=== PATIENT | male | born 1935 | race Caucasian/White ===

== ENCOUNTER 2024-04-08 01:58 | Emergency (ER) | payer MEDICARE ==
[~2024-04-08] VITALS: Ht 185.4 cm; Wt 90.0 kg
[2024-04-08] MEDS ORDERED: iohexol 350MG/ML 100ml bottle IV ONE (02:10)
[2024-04-08] MEDS ORDERED: tranexamic acid inj. 1,000 MG in normal saline 100ml IV soln 90 ML IV ONE (02:20)
[2024-04-08 02:22] LABS: BASOPHILS # (AUTO) 0.1 X10'3 (0-0.2); BASOPHILS % (AUTO) 0.5 % (0-1); EOSINOPHILS % (AUTO) 0.1 % (0-6); HEMATOCRIT 39.6 % (42.0-52.0); HEMOGLOBIN 13.5 g/dl (14.0-17.9); LYMPHOCYTES # (AUTO) 0.7 X10'3 (1.1-4.8); LYMPHOCYTES % (AUTO) 4.5 % (21-51); MEAN CORPUSCULAR HEMOGLOBIN 31.7 PG (27.0-31.0); MEAN CORPUSCULAR HGB CONC 34.1 g/dL (33.0-36.5); MEAN PLATELET VOLUME 8.6 FL (7.4-10.4); MONOCYTES # (AUTO) 1.1 X10'3 (0-0.9); MONOCYTES % (AUTO) 6.7 % (2-12); NEUTROPHILS # (AUTO) 14.2 X10'3 (1.8-7.7); NEUTROPHILS % (AUTO) 88.2 % (42-75); PLATELET COUNT 164 X10'3 (140-440); RED BLOOD COUNT 4.26 X10'6 (4.70-6.10); WHITE BLOOD COUNT 16.1 X10'3 (4.5-11.0)
[2024-04-08] MEDS: tranexamic acid 1gm/0.7% sal. 100 ML IV ONE (02:26)
[2024-04-08] MEDS: niCARDipine-NS 40mg/200ml IVPB 200 ML IV SCH (02:27)
[2024-04-08] MEDS ORDERED: levetiracetam inj 1,000 MG in normal saline 100ml IV soln 100 ML IV SCH ×2 (02:35→08:00)
[2024-04-08 02:36] LABS: APTT 35 SECONDS (22-32); INR 1.4 INR; PROTHROMBIN TIME 14.5 SECONDS (9.0-12.0)
[2024-04-08] MEDS: etomidate 2mg/ml inj. IV ONE (02:48)
[2024-04-08] MEDS: succinylcholine 20mg/ml inj IV ONE (02:48)
[2024-04-08] MEDS: MIDAZolam 5mg/ml 2ml vial IV ONE ×2 (02:49→03:19)
[2024-04-08 02:51] LABS: ALBUMIN 3.3 G/DL (3.4-5.0); ANION GAP 8 (8-16); BLOOD UREA NITROGEN 14 MG/DL (7-18); BUN/CREATININE RATIO 16.5 (10.0-20.0); CALCIUM 8.8 MG/DL (8.5-10.1); CHLORIDE 97 MMOL/L (99-107); CREATININE 0.85 MG/DL (0.60-1.10); GLUCOSE 182 MG/DL (70-104); MAGNESIUM 2.2 MG/DL (1.5-2.4); PRO BRAIN NATRIURETIC PEPTIDE 2978 PG/ML (0-450); SODIUM 131 MMOL/L (135-145); TOTAL CARBON DIOXIDE 26.2 MMOL/L (24-32); eCRCL 68 ML/MIN; eGFR 85 ML/MIN
[2024-04-08] MEDS: levetiracetam-NACL1000mg/100ml 100 ML IV ONE (02:53)
[2024-04-08] MEDS: STERILE IV ONE (02:53)
[2024-04-08] MEDS: WATER FOR INJ IV ONE (02:53)
[2024-04-08] MEDS: HUM PROTHROMB CPLX LANS IV ONE (02:53)
[2024-04-08] MEDS: normal saline 1000ml 1,000 ML IV ONE (02:54)
[2024-04-08 02:56] LABS: POTASSIUM 4.7 MMOL/L (3.5-5.1)
[2024-04-08 03:02] VITALS: BP 155/67; PULSE 117; RESP 14; O2SAT 96
[2024-04-08] MEDS: midazolam 100mg in NS 100ml 100 ML IV ONE (03:10)
[2024-04-08 03:19] LABS: ABG BASE EXCESS -0.6 mmol/L (-2.0-3.0); ABG HCO3 24.2 mmol/L (21.0-28.0); ABG OXYGEN SATURATION 97.6 % (94.0-98.0); ABG PCO2 (T) 40.7 mmHg (35.0-48.0); ABG PH (T) 7.394 (7.350-7.450); ABG PO2 (T) 102.7 mmHg (83.0-108.0); ALLEN'S TEST Modified; FCOHb 0.4 % (0.5-1.5); FHHb 2.4 % (0.0-5.0); FMetHb 0.1 % (0.0-1.5); FO2Hb 97.1 % (94.0-98.0); MODE ACVC; PATIENT TEMPERATURE 37.1; PEEP 5 cm H2O; RESPIRATORY RATE 14 b/min; TIDAL VOLUME 450 mL; TOTAL HEMOGLOBIN 13.3 G/dl (13.5-17.5)
[2024-04-08] MEDS: MIDAZolam 5mg/ml 2ml vial IV STA (03:20)
[2024-04-08 04:08] VITALS: BP 156/65; PULSE 91; RESP 15; TEMP 100; O2SAT 96
[2024-04-08] MEDS ORDERED: etomidate 2mg/ml inj. ONE (08:00)
== END 2024-04-08 04:16 | disposition short-term general hospital (02) ==
LOC: ER 02:00 → EDBD 02:00 → ER 04:16
DX: S06.5X9A Traumatic subdural hemorrhage with loss of consciousness of unspecified duration, initial encounter (principal); I10 Essential (primary) hypertension; X58.XXXA Exposure to other specified factors, initial encounter; Y93.89 Activity, other specified; Y92.89 Other specified places as the place of occurrence of the external cause; Y99.8 Other external cause status
CPT/HCPCS: 31500; 36415; 36600; 70450; 71045; 80048; 82803; 83735; 83880; 84484; 85018; 85025; 85610; 85730; 93005; 96365; 96368; 96376; 99291; 99292; J0330; J1953; J2250; J3490; J7030; J7168; Q9967; 94002; 94760; 96375; C1758